=== PATIENT | female | born 1940 | race Caucasian/White ===

== ENCOUNTER 2016-07-23 20:09 | Observation (INO) | payer MEDICARE, OTHER ==
[2016-07-23] MEDS ORDERED: PLAVIX75 M1 PO (20:19)
[2016-07-23] MEDS ORDERED: GLUCOTROL5 M1 PO (20:19)
[2016-07-23] MEDS ORDERED: CHLORDIAZEPOXIDE PO (20:22)
[2016-07-23] MEDS ORDERED: AMLODIPINE BESYL5 MG PO (20:23)
[2016-07-23] MEDS ORDERED: TENORMIN50 M1 PO (20:23)
[2016-07-23] MEDS ORDERED: LISINOPRIL40 M1 PO (20:24)
[2016-07-23] MEDS ORDERED: LOVASTATIN10 M1 PO (20:24)
[2016-07-23] MEDS ORDERED: PROAIR HFA8.5 GM (20:25)
[2016-07-23] MEDS ORDERED: LANTUS100 UNITS/ SC (20:26)
[2016-07-23] MEDS ORDERED: CINNAMON500 M1 PO (20:31)
[2016-07-23] MEDS ORDERED: [UNRECOGNIZED DRUG - OTHER] PO (20:32)
[2016-07-23] MEDS ORDERED: POTASSIUM PO (20:33)
[2016-07-23] MEDS ORDERED: CHROMIUM PIC1000 MC1 PO (20:34)
[2016-07-23] MEDS ORDERED: VITAMIN B-12250 MC2 PO (20:35)
[2016-07-23] MEDS ORDERED: [UNRECOGNIZED DRUG - OTHER] PO (20:35)
[2016-07-23] MEDS ORDERED: VITAMIN B6 PO (20:36)
[2016-07-23] MEDS ORDERED: VITAMIN D31000 UNI3 PO (20:37)
[2016-07-23] MEDS ORDERED: MAGNESIUM OXID400 M1 PO (20:37)
[2016-07-23] MEDS ORDERED: COENZYME Q1030 M1 PO (20:38)
[2016-07-23] MEDS ORDERED: [UNRECOGNIZED DRUG - OTHER] PO (20:38)
[2016-07-23] MEDS ORDERED: LECITHIN PO (20:39)
[2016-07-23] MEDS ORDERED: GARLIC100 M1 PO (20:39)
[2016-07-23] MEDS ORDERED: MILK THISTLE PO (20:40)
[2016-07-23] MEDS ORDERED: VITAMIN C500 M3 PO (20:40)
[2016-07-23] MEDS ORDERED: FOLIC ACID0.4 M1 PO (20:41)
[2016-07-23] MEDS ORDERED: VITAMIN E400 UNI4 PO (20:41)
[2016-07-23] MEDS ORDERED: SELENIUM200 MC4 PO (20:41)
[2016-07-23] MEDS ORDERED: BENADRYL25 M3 PO (20:42)
[2016-07-23] MEDS ORDERED: PAPAYA1 EAC1 PO (20:42)
[2016-07-23] MEDS ORDERED: TYLENOL EXTRA500 M1 PO (20:43)
[2016-07-25] MEDS ORDERED: OMNICEF PO (14:24)
[2016-07-25] MEDS ORDERED: PREDNISONE10 M2 PO (14:27)
[2016-07-25] MEDS ORDERED: DULERA 200 MCG/13 G1 INH (14:28)
[2016-07-25] MEDS ORDERED: PROAIR HFA8.5 GM INH (14:30)
== END 2016-07-25 15:30 ==
LOC: CAR1 20:09
PROVIDERS: ADMIT Internal Medicine
DX: J44.1 Chronic obstructive pulmonary disease with (acute) exacerbation (principal); I25.10 Atherosclerotic heart disease of native coronary artery without angina pectoris; J44.9 Chronic obstructive pulmonary disease, unspecified; I10 Essential (primary) hypertension; E78.5 Hyperlipidemia, unspecified; E11.9 Type 2 diabetes mellitus without complications; I27.2 Other secondary pulmonary hypertension; I34.0 Nonrheumatic mitral (valve) insufficiency; I35.1 Nonrheumatic aortic (valve) insufficiency; I07.1 Rheumatic tricuspid insufficiency; Z79.4 Long term (current) use of insulin; Z79.02 Long term (current) use of antithrombotics/antiplatelets; Z79.84 Long term (current) use of oral hypoglycemic drugs; Z79.899 Other long term (current) drug therapy; Z88.0 Allergy status to penicillin; Z88.2 Allergy status to sulfonamides; Z88.5 Allergy status to narcotic agent; Z91.013 Allergy to seafood; Z98.49 Cataract extraction status, unspecified eye; Z98.890 Other specified postprocedural states
CPT/HCPCS: G0378; J0696; J1815; J2920; J7050; Q9967